=== PATIENT | male | born 1955 | race Caucasian/White ===

== ENCOUNTER 2022-01-26 16:38 | Inpatient (IN) | payer MEDICARE, OTHER ==
[~2022-01-26] VITALS: Ht 175.3 cm; Wt 83.0 kg
[2022-01-26] MEDS ORDERED: BUPR1FIL3 SL (17:08)
[2022-01-26] MEDS ORDERED: ACET-2605 PO (17:08)
[2022-01-26] MEDS ORDERED: TERI2.4P SUBCUT (17:08)
[2022-01-26] MEDS ORDERED: NICO-671 TP (17:08)
[2022-01-26] MEDS ORDERED: GABA600T12 PO (17:08)
[2022-01-26] MEDS ORDERED: LISI40TA13 PO (17:08)
[2022-01-26] MEDS ORDERED: AMLO-212 PO (17:08)
[2022-01-26] MEDS ORDERED: METF-440 PO (17:08)
[2022-01-26] MEDS ORDERED: HYDR-894 PO (17:08)
[2022-01-26] MEDS ORDERED: ALLO300T2 PO (17:08)
[2022-01-26] MEDS ORDERED: DULO60CA45 PO (17:08)
[2022-01-26] MEDS ORDERED: ATOR20TA PO (17:08)
--- NOTE | 2022-01-26 17:42 | NUR ---
called report to CJ Wolfe
--- NOTE | 2022-01-26 18:10 | NUR ---
Brought a dinner tray down to unit for pt.
[2022-01-26] MEDS ORDERED: MAG HYDROX/AL HYDROX/SIMETH 30 ML LIQUID UDC PO PRN (18:15)
[2022-01-26] MEDS ORDERED: MAGNESIUM HYDROXIDE 30 ML LIQUID UDC PO PRN (18:15)
[2022-01-26] MEDS ORDERED: BLOOD SUGAR DIAGNOSTIC 1 EACH STRIP VI ONE (18:15)
[2022-01-26 18:30] VITALS: BP 136/83
--- NOTE | 2022-01-26 19:53 | NUR ---
GPS: Admitted to unit earlier a 66 yr.old male under the care and supervision of Dr. Cerda/ in stable condition. Pt.is on a 72 hour hold for DTS. Alert x1-2. Anxious,depressed,overwhelmed,disoriented and disorganized. Denies wanting to harm self at this time. Denies AH/VH. Personal belongings checked. Pt's advisement and pt's rights handbook given. Unit rules explained. Safe environment provided and emphasized. Will continue to monitor.
[2022-01-26 20:00] VITALS: BP 120/76
[2022-01-26] MEDS: ATORVASTATIN 20 MG TABLET PO SCH (21:00)
[2022-01-26] MEDS: GABAPENTIN 300 MG CAPSULE PO SCH (21:00)
[2022-01-26] MEDS: LISINOPRIL 10 MG TABLET PO SCH (21:00)
[2022-01-26] MEDS: TEMAZEPAM 7.5 MG CAPSULE PO PRN (22:12)
[2022-01-26] MEDS: LORAZEPAM 0.5 MG TABLET PO PRN (23:29)
[2022-01-27] MEDS: LORAZEPAM 0.5 MG TABLET PO PRN ×2 (04:37→12:16)
[2022-01-27] MEDS: ACETAMINOPHEN 325 MG TABLET PO PRN ×2 (04:38→12:16)
--- NOTE | 2022-01-27 06:26 | NUR ---
GPS: Pt.slept poorly last night. Anxious,confused,disorganized and needy. Frequent re-direction and re-assurance provided by staff. Anti-anxiety and sleeping pill was ineffective. Fall precautions observed. Denies wanting to harm self. Will continue to monitor.
[2022-01-27 07:17] LABS: HEMATOCRIT 38.6 % (36.7-47.1); MEAN CORPUSCULAR VOLUME 99.5 fL (73.0-96.2); PLATELET COUNT (AUTO) 129 K/uL (152-348)
[2022-01-27 07:57] LABS: CREATININE 1.3 mg/dL (0.6-1.3); MAGNESIUM 1.3 mg/dL (1.8-2.4); PHOSPHOROUS 4.2 mg/dL (2.5-4.9); POTASSIUM 3.5 mmol/L (3.5-5.1); TOTAL PROTEIN, SERUM 7.6 g/dL (6.4-8.2)
[2022-01-27 08:17] LABS: THYROID STIMULATING HORMONE 1.384 mIU/mL (0.358-3.740)
[2022-01-27] MEDS: METFORMIN HCL 500 MG TABLET PO SCH ×2 (08:20→17:22)
[2022-01-27] MEDS: AMLODIPINE 5 MG TABLET PO SCH (08:20)
[2022-01-27] MEDS: LISINOPRIL 10 MG TABLET PO SCH ×2 (08:20→20:30)
[2022-01-27] MEDS: NICOTINE 21 MG/24HR PATCH TD SCH (08:21)
[2022-01-27] MEDS: ALLOPURINOL 300 MG TABLET PO SCH (08:47)
[2022-01-27 09:14] VITALS: BP 100/77
[2022-01-27] MEDS: DULOXETINE 30 MG CAPSULE.DR PO SCH (12:05)
[2022-01-27] MEDS: MAGNESIUM OXIDE 400 MG TABLET PO SCH ×2 (12:12→17:22)
--- NOTE | 2022-01-27 13:16 | NUR ---
GPS: PT COMPLAINT FOR BACK AND LEG PAIN 06/01. GIVEN MOTRIN AND REQUESTING TO HAVE SUBOXONE INSTEAD. PT TOLERATED WELL MOTRIN. PT SUBOXONE HOME MEDS WAS NOT PRESCRIBES INPATIENT MEDS. CALLED [facility] WAITING FOR RESPONSE.
--- NOTE | 2022-01-27 13:31 | NUR ---
GPS; SPOKE WITH ANDREW CONRAD NP ABOUT PT REQUEST OF SUBOXONE, PER PT REQUEST. PER VOCAL ARTIST, SAID MED IS NOT ORDERED HERE IT IS A NARCOTIC. EXPLAINED TO PT. PT WAS CONFUSED THAT HE THOUGHT HE'S STILL IN [facility] BECAUSE HE MENTIONED HE'S GETTING IT LIKE ALMOST EVERYDAY HE'S BEEN HERE MORE THAN A WEEK. RE-ORIENTED PT TO PLACE, DATE. WILL MONITOR PT PAIN.
[2022-01-27 16:25] VITALS: BP 104/74
--- NOTE | 2022-01-27 18:27 | NUR ---
GPS: PT DENIES ANY PAIN OF NOW. PT TOLERATED THE MEDICATION WELL. PT FORGETFUL, PT WAS LOOKING FOR HIS CELLPHONE AND WENT THROUGH HIS VALUABLES AND CELLPHONE IS NOT THERE, PT REMEMBERED HE LEFT HIS PHONE AT HIS APARTMENT.
[2022-01-27] MEDS: ATORVASTATIN 20 MG TABLET PO SCH (20:30)
[2022-01-27] MEDS: GABAPENTIN 300 MG CAPSULE PO SCH (20:30)
[2022-01-27 20:36] VITALS: BP 114/73
[2022-01-27] MEDS: TEMAZEPAM 7.5 MG CAPSULE PO PRN (23:03)
[2022-01-28 07:43] VITALS: BP 123/63
[2022-01-28] MEDS: METFORMIN HCL 500 MG TABLET PO SCH ×2 (08:29→17:35)
[2022-01-28] MEDS: DULOXETINE 30 MG CAPSULE.DR PO SCH (08:29)
[2022-01-28] MEDS: AMLODIPINE 5 MG TABLET PO SCH (08:30)
[2022-01-28] MEDS: LISINOPRIL 10 MG TABLET PO SCH ×2 (08:32→21:00)
[2022-01-28] MEDS: NICOTINE 21 MG/24HR PATCH TD SCH (08:32)
[2022-01-28] MEDS: ALLOPURINOL 300 MG TABLET PO SCH (08:33)
[2022-01-28] MEDS: ACETAMINOPHEN 325 MG TABLET PO PRN (12:58)
--- NOTE | 2022-01-28 15:49 | NUR ---
LAYNE Initial Discharge Note: Pt is a 66 year old male admitted to [facility] on a 5150 hold for a danger to himself. Pt is alert and oriented x4. Pt stated he would like to discharge to a nursing facility to help treat his depression. LAYNE spoke with pt's brother, Emmanuel ([phone]) who is aware and agreeable with the current discharge plan. LAYNE will work with pt, family and MD to ensure a safe and proper discharge plan.
--- NOTE | 2022-01-28 15:54 | NUR ---
Firearms Report: Distribution Specialist completed and submitted a [employer] firearms report for 5150 a danger to himself. A copy of report has been placed in patient chart.
--- NOTE | 2022-01-28 15:55 | NUR ---
received patient is AAO x3 able to make needs known. compliant with all medication, stay in room at all time, encourage to attend in group activity. patient denies any SI/HI with poor insight . spoke with psychiatrist and agree to sign voluntary to stay longer for psychiatrist to adjust his medication.c/o chronic back pain ,called Ezequiel LENS EDGER with [facility] ordered.
[2022-01-28 16:01] VITALS: BP 103/61
[2022-01-28 20:22] VITALS: BP 103/68
[2022-01-28] MEDS: ATORVASTATIN 20 MG TABLET PO SCH (21:48)
[2022-01-28] MEDS: OLANZAPINE 5 MG TABLET PO SCH (21:49)
[2022-01-28] MEDS: GABAPENTIN 300 MG CAPSULE PO SCH (21:49)
--- NOTE | 2022-01-28 22:19 | NUR ---
patient received in activities room interacting with his peers. is AAO x3 able to make needs known. compliant with all medication,patient denies any SI/HI with poor insight. Patient in no apparent distress, patient denies any pain at this time. Safety precautions rendered, bed in lowest position, bed locked, and bed alarm on while in bed.
[2022-01-28] MEDS: TEMAZEPAM 7.5 MG CAPSULE PO PRN (23:16)
[2022-01-29 07:58] VITALS: BP 112/69
[2022-01-29] MEDS: METFORMIN HCL 500 MG TABLET PO SCH ×2 (08:19→17:40)
[2022-01-29] MEDS: ALLOPURINOL 300 MG TABLET PO SCH (08:19)
[2022-01-29] MEDS: NICOTINE 21 MG/24HR PATCH TD SCH (08:19)
[2022-01-29] MEDS: AMLODIPINE 5 MG TABLET PO SCH (08:20)
[2022-01-29] MEDS: DULOXETINE 30 MG CAPSULE.DR PO SCH (08:20)
[2022-01-29] MEDS: LISINOPRIL 10 MG TABLET PO SCH (08:21)
[2022-01-29] MEDS: LORAZEPAM 0.5 MG TABLET PO PRN ×2 (09:51→20:38)
--- NOTE | 2022-01-29 17:56 | NUR ---
received patient is AAO x3 able to make needs known. compliant with all medication, stay in room at all time, encourage to attend in group activity. patient denies any SI/HI with poor insight . .
[2022-01-29 19:45] VITALS: BP 111/58
[2022-01-29] MEDS: OLANZAPINE 5 MG TABLET PO SCH (20:34)
[2022-01-29] MEDS: ATORVASTATIN 20 MG TABLET PO SCH (20:34)
[2022-01-29] MEDS: GABAPENTIN 300 MG CAPSULE PO SCH (20:34)
[2022-01-29] MEDS: ACETAMINOPHEN 325 MG TABLET PO PRN (21:20)
[2022-01-29] MEDS: TEMAZEPAM 7.5 MG CAPSULE PO PRN (21:36)
--- NOTE | 2022-01-30 06:02 | NUR ---
GPS: Pt.slept 8.75 last night. Less anxious and depressed. Re-assured prn. Med.compliant. Contracts for safety. Denied pain at this time. Safety emphasized.
[2022-01-30 07:21] LABS: CREATININE 1.2 mg/dL (0.6-1.3); MAGNESIUM 1.6 mg/dL (1.8-2.4); PHOSPHOROUS 4.6 mg/dL (2.5-4.9); POTASSIUM 4.6 mmol/L (3.5-5.1); URIC ACID 6.1 mg/dL (3.5-7.2)
[2022-01-30 07:41] LABS: THYROID STIMULATING HORMONE 0.689 mIU/mL (0.358-3.740)
[2022-01-30 08:00] VITALS: BP 134/74
[2022-01-30] MEDS ORDERED: MAGNESIUM OXIDE 400 MG TABLET PO ONE (09:15)
[2022-01-30] MEDS: NICOTINE 21 MG/24HR PATCH TD SCH (09:31)
[2022-01-30] MEDS: DULOXETINE 30 MG CAPSULE.DR PO SCH (09:31)
[2022-01-30] MEDS: IBUPROFEN 600 MG TABLET PO PRN ×2 (09:31→18:24)
[2022-01-30] MEDS: ALLOPURINOL 300 MG TABLET PO SCH (09:32)
[2022-01-30] MEDS: LISINOPRIL 10 MG TABLET PO SCH (09:32)
[2022-01-30] MEDS: AMLODIPINE 5 MG TABLET PO SCH (09:33)
[2022-01-30] MEDS: METFORMIN HCL 500 MG TABLET PO SCH ×2 (09:33→17:35)
--- NOTE | 2022-01-30 14:22 | NUR ---
Received patient awake in his room. A/O X 3 to person, place. Pt. is calm, cooperative, approachable, talkative. Compliant with medications. Ibuprofen 600 mg was given around 10:00 for back pain rated 8 on the scale of 1 to 10, effective. Denies SI/HI AH/VH. Pt. is encourage to vent feelings and emotions. Fall and safety precautions implemented.
[2022-01-30 16:00] VITALS: BP 134/69
[2022-01-30] MEDS: LORAZEPAM 0.5 MG TABLET PO PRN ×2 (16:10→20:22)
--- NOTE | 2022-01-30 18:25 | NUR ---
Ibuprofen 600 mg given at 16:24 for lower back pain, will be monitored for effectiveness.
[2022-01-30] MEDS: OLANZAPINE 5 MG TABLET PO SCH (20:22)
[2022-01-30] MEDS: GABAPENTIN 300 MG CAPSULE PO SCH (20:22)
[2022-01-30] MEDS: ATORVASTATIN 20 MG TABLET PO SCH (20:22)
[2022-01-30 20:55] VITALS: BP 141/73
[2022-01-30] MEDS: TEMAZEPAM 7.5 MG CAPSULE PO PRN (22:12)
--- NOTE | 2022-01-31 03:27 | NUR ---
Received patient at the start of the shift, walking up and down the cook using a walker. The patient was able to engage in meaningful conversation with this sheet writer and was willing to make a contract for safety. No active SI noted. This patient is medication compliant. Took a shower and ate snack. Safety Stratiges are in place and no acute distress . Will continue to monitor.
[2022-01-31 07:38] LABS: *BILIRUBIN,URIN NEGATIVE (NEGATIVE); *CLARITY,URINE CLEAR (CLEAR); *COLOR,URINE YELLOW (YELLOW); *KETONES,URINE NEGATIVE (NEGATIVE); *UROBILINOGEN,URINE 0.2 E.U./dl (NORMAL); LEUKOCYTE ESTERASE ,URINE NEGATIVE (NEGATIVE); NITRITE, URINE NEGATIVE (NEGATIVE); UGLUCOSE NEGATIVE (NEGATIVE)
[2022-01-31 07:39] VITALS: BP 94/54
[2022-01-31 07:39] LABS: *BLOOD, URINE TRACE (NEGATIVE)
[2022-01-31 07:46] LABS: *CREATININE,URINE < 13.0 mg/dL (30-125); *URINE TOTAL PROTEIN RANDOM < 6.0 mg/dL (<150/24HR)
[2022-01-31] MEDS: ALLOPURINOL 300 MG TABLET PO SCH (08:32)
[2022-01-31] MEDS: NICOTINE 21 MG/24HR PATCH TD SCH (08:32)
[2022-01-31] MEDS: DULOXETINE 30 MG CAPSULE.DR PO SCH (08:33)
[2022-01-31] MEDS: METFORMIN HCL 500 MG TABLET PO SCH ×2 (08:33→17:10)
[2022-01-31] MEDS: LISINOPRIL 10 MG TABLET PO SCH (08:34)
[2022-01-31] MEDS: AMLODIPINE 5 MG TABLET PO SCH (08:34)
[2022-01-31] MEDS: IBUPROFEN 600 MG TABLET PO PRN ×2 (09:38→17:59)
[2022-01-31] MEDS: LORAZEPAM 0.5 MG TABLET PO PRN ×2 (09:38→17:59)
[2022-01-31 11:33] LABS: BACTERIA,URINE FEW /HPF (NONE SEEN); CALCIUM CARBONATE CRYSTALS,UR NONE SEEN /HPF (NONE SEEN); CALCIUM OXALATE CRYSTALS,UR NONE SEEN /HPF (NONE SEEN); CALCIUM PHOSPHATE CRYSTALS,UR NONE SEEN /HPF (NONE SEEN); COARSE GRANULAR CASTS,URINE NONE SEEN /LPF; CYSTINE CRYSTALS,URINE NONE SEEN /HPF (NONE SEEN); FATTY CASTS,URINE NONE SEEN /LPF (NONE SEEN); MUCUS,URINE NONE SEEN /LPF (0-FEW); RED BLOOD CELL CASTS,URINE NONE SEEN /LPF (NONE SEEN); SPERM,URINE NONE SEEN /HPF (NONE SEEN); SQUAMOUS EPITHELIAL CELL,UR FEW /HPF (NONE SEEN); TRICHOMONAS,URINE NONE SEEN /HPF (NONE SEEN); TRIPLE PHOSPHATE CRYSTAL,UR NONE SEEN /HPF (NONE SEEN); TYROSINE CRYSTAL,URINE NONE SEEN /HPF (NONE SEEN); URIC ACID CRYSTALS,URINE NONE SEEN /HPF (NONE SEEN); URINE AMORPHOUS PHOSPHATES NONE SEEN /HPF; URINE AMORPHOUS URATE NONE SEEN /HPF; WAXY CASTS,URINE NONE SEEN /LPF (NONE SEEN); WBC,URINE 0-3 /HPF (0-3); YEAST,URINE NONE SEEN /HPF (NONE SEEN)
--- NOTE | 2022-01-31 14:00 | NUR ---
Received patient awake in the hallway. A/O X 3 to person, place. Pt. is sociable, cooperative, compliant with medications. Ibuprofen 600 mg was given at 09:39 for lower back pain, and Ativan 0.5 mg was given at the same time for anxiety, both effective. Emotional support provided. Fall and safety precautions implemented.
[2022-01-31 16:01] VITALS: BP 138/89
[2022-01-31 19:49] VITALS: BP 153/88
[2022-01-31] MEDS: GABAPENTIN 300 MG CAPSULE PO SCH (20:44)
[2022-01-31] MEDS: OLANZAPINE 5 MG TABLET PO SCH (20:44)
[2022-01-31] MEDS: ATORVASTATIN 20 MG TABLET PO SCH (20:44)
[2022-01-31] MEDS: TEMAZEPAM 7.5 MG CAPSULE PO PRN (21:56)
[2022-02-01] MEDS: LORAZEPAM 0.5 MG TABLET PO PRN ×3 (05:04→23:50)
[2022-02-01] MEDS: ACETAMINOPHEN 325 MG TABLET PO PRN (05:04)
[2022-02-01] MEDS: IBUPROFEN 600 MG TABLET PO PRN ×3 (05:04→23:50)
--- NOTE | 2022-02-01 06:07 | NUR ---
Patient slept 6.00 hours last night . Up early this am asking for food and pain medication. Patient is anxious but able to engage in meaningful conversation. The patient made a verbal contract for safety with this program writer. Denies SI at this time. Safety Stratiges are in place.
[2022-02-01] MEDS: METFORMIN HCL 500 MG TABLET PO SCH ×2 (08:35→17:26)
[2022-02-01] MEDS: ALLOPURINOL 300 MG TABLET PO SCH (08:35)
[2022-02-01] MEDS: AMLODIPINE 5 MG TABLET PO SCH (08:35)
[2022-02-01] MEDS: DULOXETINE 30 MG CAPSULE.DR PO SCH (08:35)
[2022-02-01] MEDS: NICOTINE 21 MG/24HR PATCH TD SCH (08:35)
[2022-02-01] MEDS: LISINOPRIL 10 MG TABLET PO SCH (08:36)
[2022-02-01 08:44] VITALS: BP 137/62
--- NOTE | 2022-02-01 13:00 | NUR ---
Pt. is given Ibuprofen 600 mg and Ativan 0.5 mg at 13:00, will be monitored for effectiveness.
[2022-02-01] MEDS: HYDROCODONE/APAP 10-325 MG TABLET PO PRN ×2 (14:13→20:09)
--- NOTE | 2022-02-01 14:15 | NUR ---
Patient is given [place] 10 mg at 14:13 for lower back pain, will be monitored for effectiveness.
--- NOTE | 2022-02-01 15:43 | NUR ---
Received patient sleeping in his room. A/O X 4 to person, place, environment. Pt. is calm, cooperative, sociable, cooperative with care, and complaint with medications. Denies SI/HI AH/VH. Ambulates with walker. Requires minimal assistance with ADL. Pt. complains a lot about lower back pain, PRN [place] 10 mg was ordered Q6. Emotional support provided. Fall and safety precautions implemented.
[2022-02-01 16:00] VITALS: BP 143/87
[2022-02-01 19:45] VITALS: BP 152/85
[2022-02-01] MEDS: GABAPENTIN 300 MG CAPSULE PO SCH (20:09)
[2022-02-01] MEDS: OLANZAPINE 5 MG TABLET PO SCH (20:09)
[2022-02-01] MEDS: ATORVASTATIN 20 MG TABLET PO SCH (20:09)
[2022-02-01] MEDS: TEMAZEPAM 7.5 MG CAPSULE PO PRN (22:21)
[2022-02-02] MEDS: HYDROCODONE/APAP 10-325 MG TABLET PO PRN ×3 (06:01→18:46)
[2022-02-02 07:57] VITALS: BP 158/77
[2022-02-02] MEDS: METFORMIN HCL 500 MG TABLET PO SCH ×2 (08:29→08:36)
[2022-02-02] MEDS: DULOXETINE 30 MG CAPSULE.DR PO SCH (08:33)
[2022-02-02] MEDS: LISINOPRIL 10 MG TABLET PO SCH (08:33)
[2022-02-02] MEDS: AMLODIPINE 5 MG TABLET PO SCH (08:34)
[2022-02-02] MEDS: ALLOPURINOL 300 MG TABLET PO SCH (08:36)
[2022-02-02] MEDS: NICOTINE 21 MG/24HR PATCH TD SCH (08:36)
[2022-02-02] MEDS: LORAZEPAM 0.5 MG TABLET PO PRN ×2 (08:42→20:13)
--- NOTE | 2022-02-02 13:52 | NUR ---
GPS: Nursing Notes: Destructive Behavior To Self: Patient is awake and responding to his name, cooperative with nursing care, needy at times, depressed mood, but denies SI, stated that he is feeling better, following staff directions, ambulatory with fww, self care, needs minimal assistance with ADL's, needs prompting to participate in therapeutic groups, unable to formulate a viable plan for self care, continue to monitor for safety, continue with treatment plan.
[2022-02-02 14:32] VITALS: BP 119/71
[2022-02-02] MEDS: IBUPROFEN 600 MG TABLET PO PRN (15:54)
[2022-02-02 19:28] VITALS: BP 143/72
[2022-02-02] MEDS: ACETAMINOPHEN 325 MG TABLET PO PRN (20:12)
[2022-02-02] MEDS: GABAPENTIN 300 MG CAPSULE PO SCH (20:12)
[2022-02-02] MEDS: ATORVASTATIN 20 MG TABLET PO SCH (20:12)
[2022-02-02] MEDS: OLANZAPINE 5 MG TABLET PO SCH (20:13)
[2022-02-02] MEDS: TEMAZEPAM 7.5 MG CAPSULE PO PRN (21:40)
[2022-02-03] MEDS: HYDROCODONE/APAP 10-325 MG TABLET PO PRN ×3 (02:05→15:49)
--- NOTE | 2022-02-03 05:55 | NUR ---
Patient alert oriented, cooperative with care, calm at this time, cont on pain management due to lower back pain, asked for Ativan po for episode of anxiety, slept for 5.45 hours, cont to monitor.
[2022-02-03] MEDS: IBUPROFEN 600 MG TABLET PO PRN ×2 (06:14→18:17)
[2022-02-03] MEDS: ACETAMINOPHEN 325 MG TABLET PO PRN (06:45)
[2022-02-03 07:30] VITALS: BP 131/72
[2022-02-03] MEDS: METFORMIN HCL 500 MG TABLET PO SCH ×2 (08:15→17:17)
[2022-02-03] MEDS: AMLODIPINE 5 MG TABLET PO SCH (08:15)
[2022-02-03] MEDS: LISINOPRIL 10 MG TABLET PO SCH (08:16)
[2022-02-03] MEDS: DULOXETINE 30 MG CAPSULE.DR PO SCH (08:16)
[2022-02-03] MEDS: ALLOPURINOL 300 MG TABLET PO SCH (08:17)
[2022-02-03] MEDS: NICOTINE 21 MG/24HR PATCH TD SCH (08:17)
[2022-02-03] MEDS: GABAPENTIN 100 MG CAPSULE PO SCH ×2 (13:17→17:17)
--- NOTE | 2022-02-03 15:22 | NUR ---
Received patient awake in his room. A/O X 3 to person, place, situation, environment. Pt. is calm, cooperative, complaint with medications, isolative at times, demanding. Denies SI/HI AH/VH. Ambulates with walker, continent, self care. [place] was given around 08:00 am for lower back pain, rated 9 on the scale of 1 to 10, effective. Patient is encourage to vent feelings and emotions. Fall and safety precautions implemented.
--- NOTE | 2022-02-03 15:50 | NUR ---
Pt. is given [place] for lower back pain, rated 9 on the scale of 1 to 10, will be monitored for effectiveness.
[2022-02-03 16:00] VITALS: BP 144/74
[2022-02-03] MEDS: LORAZEPAM 0.5 MG TABLET PO PRN (16:41)
--- NOTE | 2022-02-03 16:43 | NUR ---
Ativan 0.5 mg is given at 16:43, will be monitored for effectiveness.
--- NOTE | 2022-02-03 18:18 | NUR ---
Motrin 600 mg is given to patient for lower back pain, patient states that [place] 10 mg is not enough to treat his pain.
[2022-02-03 19:45] VITALS: BP 128/74
[2022-02-03] MEDS: OLANZAPINE 5 MG TABLET PO SCH (20:19)
[2022-02-03] MEDS: TEMAZEPAM 7.5 MG CAPSULE PO PRN (20:19)
[2022-02-03] MEDS: ATORVASTATIN 20 MG TABLET PO SCH (20:20)
[2022-02-03] MEDS: GABAPENTIN 300 MG CAPSULE PO SCH (20:21)
[2022-02-04] MEDS: HYDROCODONE/APAP 10-325 MG TABLET PO PRN ×5 (01:51→23:09)
[2022-02-04] MEDS: LORAZEPAM 0.5 MG TABLET PO PRN ×4 (04:16→22:17)
[2022-02-04] MEDS: IBUPROFEN 600 MG TABLET PO PRN ×3 (04:16→22:17)
[2022-02-04] MEDS: ACETAMINOPHEN 325 MG TABLET PO PRN ×2 (06:15→16:59)
[2022-02-04] MEDS: GABAPENTIN 100 MG CAPSULE PO SCH ×3 (08:42→16:41)
[2022-02-04] MEDS: ALLOPURINOL 300 MG TABLET PO SCH (08:42)
[2022-02-04] MEDS: NICOTINE 21 MG/24HR PATCH TD SCH (08:42)
[2022-02-04] MEDS: METFORMIN HCL 500 MG TABLET PO SCH ×2 (08:42→17:01)
[2022-02-04] MEDS: DULOXETINE 30 MG CAPSULE.DR PO SCH (08:42)
[2022-02-04] MEDS: LISINOPRIL 10 MG TABLET PO SCH (08:43)
[2022-02-04] MEDS: AMLODIPINE 5 MG TABLET PO SCH (08:46)
[2022-02-04 09:42] VITALS: BP 135/78
[2022-02-04 09:58] VITALS: BP 126/78
--- NOTE | 2022-02-04 10:57 | NUR ---
SNF Referral: [employer] Worker faxed patient's referral packet including: History and Physical, Consultation, Progress Notes, Medication List and Labs to the following facilities for review and possible detention placement: [address] [address] ([phone]) LAYNE spoke with Yesenia.
--- NOTE | 2022-02-04 12:07 | NUR ---
LAYNE Discharge Update: LAYNE spoke with Yesenia from [address] [address] ([phone]) who stated that pt is accepted to both this facility and to their sister facility, [facility] located at [address] [place] [phone] ([phone]). SW informed pt of the update and pt is aware and agreeable with the current discharge plan.
--- NOTE | 2022-02-04 13:10 | NUR ---
GPS: Nursing Notes: Destructive Behavior To Self: Patient is awake and responding to his name, cooperative with nursing care, compliant with his medications, ambulatory with fww, participating in therapeutic groups, depressed mood and anxious affect, verbally sigrid for safety, denies SI/HI, continue to monitor for safety, unable to formulate a viable plan for self care, continue with treatment plan.
[2022-02-04 16:02] VITALS: BP 126/68
[2022-02-04] MEDS: TEMAZEPAM 7.5 MG CAPSULE PO PRN (20:53)
[2022-02-04] MEDS: ATORVASTATIN 20 MG TABLET PO SCH (20:53)
[2022-02-04] MEDS: OLANZAPINE 5 MG TABLET PO SCH (20:53)
[2022-02-04] MEDS: GABAPENTIN 300 MG CAPSULE PO SCH (20:53)
[2022-02-04 23:24] VITALS: BP 135/74
[2022-02-05] MEDS: HYDROCODONE/APAP 10-325 MG TABLET PO PRN ×4 (04:09→23:29)
--- NOTE | 2022-02-05 04:51 | NUR ---
GPS NOTES: patient in the day room upon the start of the shift, interacting appropriately with peers, in cheerful attitude. Patient A&Ox2. Denies SI. Made contract safety with the magnetic tape typewriter operator. Patient c/o lower back pain 6/10. Patient remains compliant with medications. Patient given PRN medications as ordered for pain with somewhat effectivity, from 6/10 to 2/10 lower back pain. Patient intermittently sleeps during shift. Closely monitor for any destructive behavior and safety.
[2022-02-05] MEDS: LORAZEPAM 0.5 MG TABLET PO PRN ×3 (05:40→20:16)
[2022-02-05] MEDS: IBUPROFEN 600 MG TABLET PO PRN ×3 (05:40→20:16)
[2022-02-05 08:39] VITALS: BP 147/78
[2022-02-05] MEDS: NICOTINE 21 MG/24HR PATCH TD SCH (09:09)
[2022-02-05] MEDS: AMLODIPINE 5 MG TABLET PO SCH (09:10)
[2022-02-05] MEDS: LISINOPRIL 10 MG TABLET PO SCH (09:10)
[2022-02-05] MEDS: DULOXETINE 30 MG CAPSULE.DR PO SCH (09:10)
[2022-02-05] MEDS: GABAPENTIN 100 MG CAPSULE PO SCH ×3 (09:10→16:22)
[2022-02-05] MEDS: METFORMIN HCL 500 MG TABLET PO SCH ×2 (09:10→17:13)
[2022-02-05] MEDS: ALLOPURINOL 300 MG TABLET PO SCH (09:12)
--- NOTE | 2022-02-05 10:40 | NUR ---
GPS: Nursing Notes: Destructive Behavior To Self: Patient is awake and responding to his name, cooperative with nursing care, compliant with his medications, participating in therapeutic groups, ambulatory with fww, believes that he getting better, believes that he ready for discharge, brighter affect, interactive peers, following staff directions, denies SI/HI, verbally sigrid for safety, unable to formulate a viable plan for self care, continue to monitor for safety, continue with treatment plan.
[2022-02-05 15:58] VITALS: BP 143/81
[2022-02-05] MEDS: ATORVASTATIN 20 MG TABLET PO SCH (20:16)
[2022-02-05] MEDS: OLANZAPINE 5 MG TABLET PO SCH (20:16)
[2022-02-05] MEDS: GABAPENTIN 300 MG CAPSULE PO SCH (20:16)
[2022-02-05 20:55] VITALS: BP 117/83
[2022-02-05] MEDS: TEMAZEPAM 7.5 MG CAPSULE PO PRN (23:28)
[2022-02-06] MEDS: HYDROCODONE/APAP 10-325 MG TABLET PO PRN (06:44)
[2022-02-06] MEDS: ALLOPURINOL 300 MG TABLET PO SCH (08:23)
[2022-02-06] MEDS: METFORMIN HCL 500 MG TABLET PO SCH (08:23)
[2022-02-06] MEDS: DULOXETINE 30 MG CAPSULE.DR PO SCH (08:23)
[2022-02-06] MEDS: NICOTINE 21 MG/24HR PATCH TD SCH (08:23)
[2022-02-06] MEDS: GABAPENTIN 100 MG CAPSULE PO SCH (08:23)
[2022-02-06] MEDS: AMLODIPINE 5 MG TABLET PO SCH (08:24)
[2022-02-06] MEDS: LISINOPRIL 10 MG TABLET PO SCH (08:25)
[2022-02-06 08:42] VITALS: BP 166/82
--- NOTE | 2022-02-06 09:36 | NUR ---
LAYNE Discharge Note: Pt will be discharged to [facility] [address] [place] [address] ([phone]) via Ambulance transportation at 11AM. LAYNE spoke with admin coordinator, Yesenia at the facility who states they are ready to accept the patient today. Pt is aware and agreeable with discharge plans. Pt is alert and oriented x4, is unable to plan for self-care at this time; however, is willing to accept care at SNF. This SW left a voicemail for pts brother, Emmanuel ([phone]) for a call back and stated pts discharge plan for 02/06/22. Pt however did state to SW that pt informed his brother of the discharge plan and he is aware and agreeable. Pt denies any suicidal or homicidal ideation. Pt will follow-up at the facility with Psychiatrist, Dr. Mondragon and Florist Supplies Salesperson, Dr. Zapata. Pt presents with calm mood and congruent affect. Yesenia stated pt will be in room 17A. PHARMACY: [facility] ([phone]) [address] [facility] [address].
[2022-02-06] MEDS: IBUPROFEN 600 MG TABLET PO PRN (09:58)
[2022-02-06] MEDS: LORAZEPAM 0.5 MG TABLET PO PRN (09:58)
--- NOTE | 2022-02-06 10:00 | NUR ---
Patient is given Motrin 600 mg for lower back pain, and Ativan 0.5 mg for anxiety, will be monitored for effectiveness.
--- NOTE | 2022-02-06 10:42 | NUR ---
Received patient awake in his room. A/O X 4 to person, place, environment. Pt. is calm, cooperative, complaint with medications, fixated on PRN, sociable. Ambulates with walker. Denies SI/HI AH/VH. Active listening provided. Fall and safety precautions implemented.
--- NOTE | 2022-02-06 11:18 | NUR ---
Received orders to discharge this patient to [facility]. Pt. denies SI/HI AH/VH, pain or any discomfort, SOB. Pt. belongings, including valuables and clothes, were returned to the patient. All discharge documents were signed by the patient. Patient left the unit at 11:20 by [facility]. Emotional support provided. Fall and safety precautions implemented.
== END 2022-02-06 11:20 | DRG 881 ==
LOC: ER 16:39 → GPS 17:30
PROVIDERS: ADMIT Nurse Practitioner Psychiatric/Mental Health; ATTEND Registered Nurse
DX: F32.9 Major depressive disorder, single episode, unspecified (principal); N17.9 Acute kidney failure, unspecified; N18.9 Chronic kidney disease, unspecified; R45.851 Suicidal ideations; E22.2 Syndrome of inappropriate secretion of antidiuretic hormone; F29 Unspecified psychosis not due to a substance or known physiological condition; E11.22 Type 2 diabetes mellitus with diabetic chronic kidney disease; Z79.899 Other long term (current) drug therapy; G40.909 Epilepsy, unspecified, not intractable, without status epilepticus; Z85.46 Personal history of malignant neoplasm of prostate; Z86.19 Personal history of other infectious and parasitic diseases; F19.11 Other psychoactive substance abuse, in remission; F10.21 Alcohol dependence, in remission; E86.1 Hypovolemia; D69.6 Thrombocytopenia, unspecified; Z79.891 Long term (current) use of opiate analgesic; Z20.822 Contact with and (suspected) exposure to COVID-19; Z79.84 Long term (current) use of oral hypoglycemic drugs
CPT/HCPCS: 36415; 71045; 83735; 83935; 84100; 84156; 84300; 84443; 84550; 85025; 93005; 97161; A4663